=== PATIENT | female | born 1990 ===

== ENCOUNTER 2022-02-20 16:34 | Emergency (ER) | payer SELFPAY ==
[2022-02-20 22:23] LABS: CARBON DIOXIDE,CO2 25.8 mmol/L (21.0-32.0); POTASSIUM,K 3.9 mmol/L (3.5-5.1)
== END 2022-02-21 00:54 | disposition home or self-care (01) ==
LOC: MW.ED 16:34
DX: O20.0 Threatened abortion (principal); Z3A.01 Less than 8 weeks gestation of pregnancy
CPT/HCPCS: 36415; 76801; 76801-26; 80048; 81003; 84702; 85025; 86900; 86901; 99284

== ENCOUNTER 2022-05-20 03:16 | Emergency (ER) | payer BC | END 2022-05-20 03:24 | disposition still patient (30) | LOC: MW.ED 03:16 | DX: Z53.21 Procedure and treatment not carried out due to patient leaving prior to being seen by health care provider (principal) | CPT/HCPCS: 81003; 87480; 87510; 87660; A9270 ==

== ENCOUNTER 2022-09-13 21:01 | Inpatient (IN) | payer BC ==
[2022-09-13] MEDS ORDERED: Methylergonovine 0.2 MG/1 ML Amp IM PRN (22:30)
[2022-09-13] MEDS ORDERED: Sodium Chloride 0.9% 20 ML SDV IV PRN (22:30)
[2022-09-13] MEDS ORDERED: Oxytocin/0.9 % Sodium Chloride 30 UNIT/500 ML BAG IV SCH ×2 (22:30)
[2022-09-13] MEDS ORDERED: Sodium Chloride 0.9% 2.5 ML Syringe FLUSH PRN (22:30)
[2022-09-13] MEDS ORDERED: Lidocaine 1% 50 ML MDV INJECT PRN (22:30)
[2022-09-13] MEDS ORDERED: Terbutaline 1 MG/ML SDV SUBCUT PRN (22:30)
[2022-09-13] MEDS ORDERED: Sodium Chloride 0.9% 10 ML Syringe FLUSH PRN (22:30)
[2022-09-13] MEDS ORDERED: Misoprostol 25 MCG (1/4 of 100 MCG) Tab PO PRN (22:30)
[2022-09-13] MEDS ORDERED: Tranexamic Acid 1,000 MG in Sodium Chloride 0.9% 100 ML IV PRN (22:30)
[2022-09-13] MEDS ORDERED: Carboprost Tromethamine 250 MCG/1 ML Amp IM PRN (22:30)
[2022-09-13] MEDS ORDERED: Water For Irrigation,Sterile 1,000 ML Container IRR PRN (22:30)
[2022-09-13] MEDS ORDERED: Misoprostol 25 MCG (1/4 of 100 MCG) Tab VAG PRN (22:30)
[2022-09-13] MEDS ORDERED: Butorphanol 1 MG/ML SDV IVPUSH PRN (22:30)
[2022-09-13] MEDS ORDERED: Misoprostol 200 MCG Tab PO PRN (22:30)
[2022-09-13] MEDS ORDERED: Ondansetron 4 MG/2 ML SDV IVPUSH PRN (22:30)
[2022-09-14] MEDS: Lactated Ringers 1,000 ML IV SCH ×2 (00:04→07:14)
[2022-09-14] MEDS ORDERED: Labetalol 100 MG/20 ML MDV IVPUSH PRN (01:38)
[2022-09-14] MEDS ORDERED: Dexmedetomidine 200 MCG/2 ML SDV ONE (03:43)
[2022-09-14] MEDS ORDERED: Ropivacaine/PF 400 MG/200 ML PCA ONE (03:43)
[2022-09-14] MEDS ORDERED: Phenylephrine HCl 0.5 MG/5 ML AMP ONE ×2 (03:43→04:06)
[2022-09-14] MEDS ORDERED: Lidocaine 2% with EPINEPHrine 1:200,000 20 ML SDV ONE (03:49)
[2022-09-14] MEDS ORDERED: ePHEDrine 50 MG/ML SDV IVPUSH PRN ×2 (03:58)
[2022-09-14] MEDS ORDERED: Phenylephrine HCl In 0.9% NaCl 1 MG/10 ML Vial IVPUSH PRN (03:58)
[2022-09-14] MEDS ORDERED: Ropivacaine HCl/PF 400 MG in Premix Bag 1 BAG EPIDUR SCH (04:00)
[2022-09-14] MEDS ORDERED: Phenylephrine HCl In 0.9% NaCl 1 MG/10 ML Vial IVPUSH SCH (04:00)
[2022-09-14] MEDS ORDERED: Lanolin 100% Cream 7 GM Tube TOP PRN (04:32)
[2022-09-14] MEDS ORDERED: oxyCODONE 5 MG Tab PO PRN (04:32)
[2022-09-14] MEDS ORDERED: Docusate Sodium 100 MG Cap PO PRN (04:32)
[2022-09-14] MEDS ORDERED: Bisacodyl 10 MG Supp RECTAL PRN (04:32)
[2022-09-14] MEDS ORDERED: Witch Hazel Medicated Pads 40/Jar TOP PRN (04:32)
[2022-09-14] MEDS ORDERED: Benzocaine/Menthol 20%-0.5% Spray 78 GM Cannister TOP PRN (04:32)
[2022-09-14] MEDS ORDERED: Ibuprofen 400 MG Tab PO PRN (04:32)
[2022-09-14] MEDS ORDERED: Acetaminophen 500 MG Tab PO PRN ×2 (04:32)
[2022-09-14] MEDS: Ibuprofen 800 MG Tab PO PRN ×2 (13:18→20:47)
== END 2022-09-15 18:10 | disposition home or self-care (01) | DRG 560 ==
LOC: MW.OB 21:01 → MW.OBCHECK 21:01 → MW.OB 22:30 → OBSVTOIN 09-14 05:23 → MW.OB 09-14 10:12
PROVIDERS: ADMIT Obstetrics & Gynecology; ATTEND Obstetrics & Gynecology
PROC: 10E0XZZ Delivery of Products of Conception, External Approach (ICD-10-PCS; principal; 2022-09-14)
PROC: 0KQM0ZZ Repair Perineum Muscle, Open Approach (ICD-10-PCS; 2022-09-14)
PROC: 3E0P7VZ Introduction of Hormone into Female Reproductive, Via Natural or Artificial Opening (ICD-10-PCS; 2022-09-14)
PROC: 3E0R3BZ Introduction of Anesthetic Agent into Spinal Canal, Percutaneous Approach (ICD-10-PCS; 2022-09-14)
PROC: 00HU33Z Insertion of Infusion Device into Spinal Canal, Percutaneous Approach (ICD-10-PCS; 2022-09-14)
DX: O42.02 Full-term premature rupture of membranes, onset of labor within 24 hours of rupture (principal); O70.1 Second degree perineal laceration during delivery; Z3A.39 39 weeks gestation of pregnancy; Z37.0 Single live birth
CPT/HCPCS: 36415; 51701; 59025; 59409; 84112; 85014; 85018; 85027; 86592; 86850; 86900; 86901; A9270-GY; J0595; J2370; J2590; J2795; J3490; J7120; U0002

== ENCOUNTER 2022-09-21 11:27 | Observation (INO) | payer BC ==
[2022-09-21] MEDS ORDERED: Sodium Chloride 0.9% 10 ML Syringe FLUSH PRN (11:48)
[2022-09-21] MEDS ORDERED: Sodium Chloride 0.9% 2.5 ML Syringe FLUSH PRN (11:48)
[2022-09-21] MEDS ORDERED: Sodium Chloride 0.9% 1,000 ML IV STA ×3 (12:00→13:31)
[2022-09-21] MEDS ORDERED: Piperacillin/Tazobactam 4.5 GM in Sodium Chloride 0.9% 100 ML IV ONE (12:01)
[2022-09-21 12:17] LABS: CARBON DIOXIDE,CO2 23.5 mmol/L (21.0-32.0)
[2022-09-21] MEDS ORDERED: Magnesium Sulfate/Water 2 GM in Premix Bag 1 BAG IV STA (12:17)
[2022-09-21] MEDS ORDERED: Acetaminophen 500 MG Tab PO STA (12:25)
[2022-09-21] MEDS ORDERED: VANCOmycin 2 GM/400 ML 2 GM in Premix Bag 1 BAG IV ONE (12:45)
[2022-09-21] MEDS ORDERED: Vancomycin 2 GM in Sodium Chloride 0.9% 500 ML IV ONE (13:00)
[2022-09-21] MEDS ORDERED: Iopamidol 755 MG/ML 500 ML Multipack Bottle IVPUSH ONE (13:28)
[2022-09-21] MEDS: Acetaminophen 325 MG Tab PO PRN (21:12)
[2022-09-21] MEDS: Clindamycin Phosphate in D5W 900 MG in Premix Bag 1 BAG IV SCH ×2 (23:51)
[2022-09-22] MEDS ORDERED: GENTAMICIN PHARMACY TO DOSE IVPUSH SCH (01:00)
[2022-09-22] MEDS ORDERED: Gentamicin 330 MG in Sodium Chloride 0.9% 100 ML IV SCH (01:30)
[2022-09-22] MEDS ORDERED: Ampicillin 2 GM in Sodium Chloride 0.9% 100 ML IV SCH (08:00)
[2022-09-22] MEDS: Clindamycin Phosphate in D5W 900 MG in Premix Bag 1 BAG IV SCH ×6 (08:44→23:30)
[2022-09-22] MEDS ORDERED: cefTRIAXone 2 GM/50 ML BAG IV SCH (10:00)
[2022-09-22] MEDS: Acetaminophen 325 MG Tab PO PRN (23:42)
[2022-09-23] MEDS ORDERED: Gentamicin 330 MG in Sodium Chloride 0.9% 100 ML IV SCH (01:30)
[2022-09-23] MEDS: Clindamycin Phosphate in D5W 900 MG in Premix Bag 1 BAG IV SCH ×4 (08:07→09:38)
== END 2022-09-23 10:21 | disposition home or self-care (01) ==
LOC: MW.ED 11:27 → MW.MS 15:13 → MERGE 15:13
PROVIDERS: ADMIT Obstetrics & Gynecology Obstetrics; ATTEND Obstetrics & Gynecology Obstetrics
DX: O86.12 Endometritis following delivery (principal); O99.13 Other diseases of the blood and blood-forming organs and certain disorders involving the immune mechanism complicating the puerperium; D72.825 Bandemia; O86.4 Pyrexia of unknown origin following delivery
CPT/HCPCS: 36415; 74177; 80053; 80170; 81001; 83605; 83735; 85025; 85610; 87040; 87086; 87154; 87480; 87510; 87660; 96365; 96366; 96367; 96368; 96376; 99285; A9270; G0378; J0696; J1580; J2543; J3370; J3475; J3490; J7030; J7040; J7050; Q9967; 87077; 87186